=== PATIENT | male | born 1990 | race Caucasian/White ===

== ENCOUNTER 2024-05-31 17:30 | Emergency (ER) | payer BC ==
[~2024-05-31] VITALS: Ht 190.5 cm; Wt 83.9 kg
[2024-05-31 17:42] VITALS: BP 125/78; TEMP 98.1; O2SAT 99
[2024-05-31] MEDS ORDERED: HYDR-3980 PO (21:19)
[2024-05-31] MEDS ORDERED: KETO10TA2 PO (22:02)
== END 2024-05-31 21:35 | disposition home or self-care (01) ==
LOC: ER 17:33
DX: S62.317A Displaced fracture of base of fifth metacarpal bone, left hand, initial encounter for closed fracture (principal); W22.09XA Striking against other stationary object, initial encounter; Y93.89 Activity, other specified; Y92.89 Other specified places as the place of occurrence of the external cause; Y99.8 Other external cause status
CPT/HCPCS: 73130-TC